=== PATIENT | female | born 1985 | race Caucasian/White ===

== ENCOUNTER → 2023-04-05 | Outpatient (CLI) | payer OTHER, SELFPAY ==
[2023-04-09 19:06] LABS: G6PD Quant Test 298 (127-427); Red Blood Cell Count Test/G6PD 5.28 x10E6/uL (3.77-5.28)
== END | disposition home or self-care (01) ==
PROVIDERS: Visit Provider Nurse Practitioner Family
DX: B60.09 Other babesiosis (principal); A44.0 Systemic bartonellosis; A69.20 Lyme disease, unspecified; G89.29 Other chronic pain; G43.101 Migraine with aura, not intractable, with status migrainosus; F41.9 Anxiety disorder, unspecified; E28.39 Other primary ovarian failure
CPT/HCPCS: 82955